=== PATIENT | female | born 1995 | race Caucasian/White ===

== ENCOUNTER 2025-03-30 07:13 | Emergency (ER) | payer MEDICAID ==
[~2025-03-30] VITALS: Ht 162.6 cm; Wt 52.0 kg
[~2025-03-30 07:13] MED LIST: FLUT16SP2 BOTHNARES; GUAI600T45 PO; ONDA8TAB6 PO; PSEU-259 PO
--- NOTE | 2025-03-30 07:49 | ELECTROCARDIOGRAPH REPORT ---
[facility] Test Date: 2025-03-30 Test Time: 07:47:16 Pat Name: LISHA DIAS Department: [facility]- Patient ID: [id number] Room: Gender: F [employer]ic: : 1995 Requested By: GRECIA MELENDREZ Order Number: [id number] Reading MD: Measurements Intervals [place] Rate: 67 P: 76 WI: 141 QRS: -50 QRSD: 100 T: 16 QT: 383 QTc: 405 Interpretive Statements Sinus rhythm Left axis deviation Baseline wander in lead(s) V3 Please click the below link to view image of tracing.
--- NOTE | 2025-03-30 07:52 | Physician Documentation ---
History of Present Illness ~ Chief Complaint: Syncope Stated Complaint: POSS SYNCOPE Time Seen by MD: 07:37 Primary Medical Doctor: NONE Source: patient, family Mode of Arrival: POV, Ambulatory Exam Limitations: no limitations HPI Chief Complaint: Passed out Caveat: None Independent Historians: History of Present Illness: Patient is a 29-year-old healthy woman who presents after having passed out this morning. Patient became ill yesterday with a cough, body aches, chills and sweats. Patient's cough is productive of green sputum. Patient also developed a fever yesterday. No abdominal pain. No nausea vomiting diarrhea. Patient thought she had the flu. When she woke up t his morning she got up out of bed and shortly thereafter became lightheaded, her ears felt warm and hot and her hearing was muffled. She became very dizzy lightheaded and lowered herself to the floor when she became unresponsive. Patient woke up a few sec later and was able to crawl to a chair. Patient tried to get up multiple times but would become very dizzy lightheaded and near syncopal. No chest pain. No shortness a breath. No abdominal pain. Patient's son had strep throat a few days ago. Patient does not have a sore throat. Patient's also became ill with the same symptoms that she had but is now better. Patient has started a new antipsychotic to help with her sleep. She does not remember the name of the medication. She just started at two days ago. Review of systems: All systems were reviewed and are negative except for what is indicated in the history of present illness. Past Medical History: None Past Surgical History: None Social History: Tobacco use, denies alcohol or drug use Medications: Reviewed as documented Nursing Notes Allergies: Reviewed as documented in Nursing Notes Medication Reconciliation Allergies: Coded Allergies: No Known Allergies (Unverified , 03/30/25) Scheduled Cephalexin*Monohydrate* (Keflex*), 1 CAP PO Q8H Fluticasone Propionate (Flonase), 2 SPRAYS BOTHNARES DAILY Guaifenesin (Mucinex), 1 TAB PO Q12H Pseudoephedrine Hcl (SUDAFED tablet), 1 TAB PO Q4H Scheduled PRN Ondansetron Hcl (Zofran), 8 MG PO Q8HPRN PRN for nausea/vomiting Past Medical History Past Medical History: No Pertinent History Past Surgical History: no surgical history Alcohol Use: Occasionally Drug Use: none Lives with: Family Lives In: Home Occupation: employed Review of Systems All Other Systems at this time: Reviewed and Negative ROS Patient denies any other acute symptoms other than above. All other systems are negative Physical Exam Vital Signs: RN Vital Signs have been reviewed: Yes, Temperature: 98.5, Source: Temporal, Heart Rate: 82, Respiratory Rate: 16, BP: 111/78, Pulse Oximetry: 99, Weight: 52.000 Oxygen Flow Rate: 0 Pulse Oximetry Reflects: adequate oxygenation Physical Exam General Appearance: Mild distress HEENT: Normal OP, moist oral mucosa, PERRL, EOMI Neck: supple, normal ROM, trachea midline Pulmonary: No respiratory distress, CTA, BS equal Cardiac: RRR, no murmur, rub or gallop, GI: nondistended, soft, nontender, normal bowel sounds, no guarding, no rebound Extremities: normal ROM, no swelling, non-tender Skin: intact, dry, warm, no rashes Neuro: AAOx3, speech is clear, no focal motor weakness Psych: normal affect, good eye contact, no apparent hallucination, normal speech Progress Results/Orders Results/Orders Orders - GRECIA MELENDREZ MD Chest,Single View (03/30/25 07:45) Saline Lock (03/30/25 07:45) Monitor (03/30/25 07:45) Hs Troponin I W Calculations (03/30/25 09:45) Hs Troponin I W Calculations (03/30/25 10:45) Culture Blood (03/30/25 07:45) Orthostatic Vs (03/30/25 07:45) Cult Urine + [place] [address] (03/30/25 09:30) Completed Orders - GRECIA MELENDREZ MD Electrocardiogram (03/30/25 ) Cbc/Diff (03/30/25 07:45) MG (03/30/25 07:45) PBNP (03/30/25 07:45) Chest,Single View (03/30/25 07:45) BMP (03/30/25 07:45) Hs Troponin I W Calculations (03/30/25 07:45) Procalcitonin (03/30/25 07:45) Lacticsepsis (03/30/25 07:45) Ringers Solution, Lacted (Lactated Ringe (03/30/25 07:45) Ua W/Microscopic, Cult If Ind (03/30/25 08:50) Ketorolac Trometh 15mg/Ml Vial (Toradol (03/30/25 09:50) Cephalexin Capsule (Keflex Capsule) (03/30/25 09:50) Medications Received in ER Medications (Trade) Dose Ordered Sig/Quinn Route PRN Reason Start Time Stop Time Status Last Admin Dose Admin (lactated ringers solution) 1,000 ml ONCE ONCE IV 03/30/25 07:45 03/30/25 07:47 DC 03/30/25 08:05 1,000 ML (Toradol injection) 15 mg ONCE ONCE IV 03/30/25 09:50 03/30/25 09:51 DC 03/30/25 10:07 15 MG (Keflex capsule) 500 mg ONCE ONCE PO 03/30/25 09:50 03/30/25 09:51 DC 03/30/25 10:07 500 MG Vital Signs 03/30/25 03/30/25 03/30/25 03/30/25 07:16 07:27 08:49 09:04 Temp 98.5 Pulse 82 66 64 70 84 Resp 16 16 11 B/P (MAP) 111/78 117/67 110/68 (82) 110/72 131/85 Pulse Ox 99 100 O2 Flow Rate 0 03/30/25 03/30/25 03/30/25 09:44 10:07 10:20 Pulse 72 69 Resp 19 17 17 B/P (MAP) 112/66 (81) 109/67 Pulse Ox 99 100 Laboratory Tests Test 03/30/25 08:00 03/30/25 08:50 03/30/25 09:05 White Blood Count 4.7 Red Blood Count 3.91 L Hemoglobin 12.4 Hematocrit 36.0 Mean Corpuscular Volume 92.1 Mean Corpuscular Hemoglobin 31.8 H Mean Corpuscular Hemoglobin Concent 34.6 Red Cell Distribution Width 13.5 Platelet Count 207 Mean Platelet Volume 8.4 Neutrophils (%) (Auto) 69.5 Lymphocytes (%) (Auto) 15.8 L Monocytes (%) (Auto) 13.9 H Eosinophils (%) (Auto) 0.3 Basophils (%) (Auto) 0.5 Neutrophils # (Auto) 3.2 Lymphocytes # (Auto) 0.7 L Monocytes # (Auto) 0.7 Eosinophils # (Auto) 0.0 Basophils # (Auto) 0.0 CBC Comment Sodium Level 137 Potassium Level 3.1 L Chloride Level 103 Carbon Dioxide Level 25.8 Anion Gap 8 Blood Urea Nitrogen 7 Creatinine 0.90 Estimated GFR/1.73 m2 74 BUN/Creatinine Ratio 7.8 L Glucose Level 92 Lactic Acid Level 1.5 Calcium Level 8.3 L Magnesium Level 2.0 Troponin I High Sensitivity 5 Pro-B-Type Natriuretic Peptide 66 Albumin 3.7 Procalcitonin < 0.05 Chemistry Comments Urine Specimen Description Non-specified Urine Color Yellow Urine Clarity Clear Urine pH 6.0 Urine Specific [place] <=1.005 Urine Protein Negative Urine Glucose (UA) Negative Urine Ketones Negative Urine Occult Blood Moderate H Urine Nitrite Positive H Urine Bilirubin Negative Urine Urobilinogen 0.2 Urine Leukocyte Esterase Negative Urine RBC None seen Urine WBC 5-10 H Urine Squamous Epithelial Cells Few Urine Bacteria 3+ Urine Fine Granular Casts 0-3 Urine Culture Indicated Indicated Volume Urine Centrifuged 10 ml Urine Comment Low volume SARS-CoV-2 Antigen (Rapid) Positive *A Microbiology Date/Time Source Procedure Growth Status 03/30/25 09:30 Urine Nonspecified Urine Culture - Preliminary Culture received. Resulted 03/30/25 08:02 Blood Hand Right Blood Culture - Preliminary NEGATIVE (LESS THAN 24 HOURS) Resulted Medical Decision Making Findings Differential diagnosis includes but is not limited to: COVID, influenza, pneumonia, strep, other viral syndrome, dehydration, cardiac dysrhythmia EKG independent interpretation: Performed at 7:47 a.m.. Normal sinus rhythm, heart rate 67, leftward axis, normal ST segments Chest x-ray, single view, indication: Cough Independent interpretation: Lungs are clear, normal mediastinum, normal cardiac silhouette. No acute cardiopulmonary process Laboratory data independent interpretation: CBC: Unremarkable CMP: Unremarkable Serology: COVID positive Urinalysis: Consistent with urinary tract infection Emergency department course/medical decision-making: Patient's history and physical and presentation is consistent with an acute viral syndrome. Patient is also found to have a urinary tract infection. Patient will be started on Keflex. Patient has positive test for COVID. Test results and treatment plan all reviewed with the patient. Patient is stable for discharge. Patient was given 1 L of LR. Patient is also found to have a urinary tract infection. Patient will be started on Keflex. Patient is given Toradol for her body aches 15 mg IV. Test results and treatment plan reviewed with the patient. Patient is stable for discharge. Departure Time of Disposition: 09:44 Disposition: 01 HOME / SELF CARE / HOMELESS Impression: Primary Impression: COVID Additional Impressions: Syncope Qualified Codes: R55 - Syncope and collapse UTI (urinary tract infection) Qualified Codes: N39.0 - Urinary tract infection, site not specified Condition: Stable Discharge Instructions: Syncope, Adult, [id number], Urinary Tract Infection, Adult, [id number], Viral Illness, Adult Additional Instructions: STAY HYDRATED. TAKE ADVIL AND TYLENOL FOR YOUR SYMPTOMS. RECOMMEND DAILY VITAMIN D AND ZINC. Prescriptions Cephalexin*Monohydrate* (Keflex*) 500 Mg Capsule 1 CAP PO Q8H for 5 Days, #15 CAP Prov: GRECIA MELENDREZ MD 03/30/25 Education Educated: Patient, Family Educated regarding: diagnosis, treatment, need for follow up Signature Scribe Signature: NO SCRIBE Attestation: NO SCRIBE GRECIA MELENDREZ MD Mar 30, 2025 07:51
[2025-03-30] MEDS: ringers solution, lactated 1000ml IV soln IV ONE (08:05)
--- NOTE | 2025-03-30 08:10 | RADIOLOGY REPORT ---
CHEST RADIOGRAPH Indication: CP Technique: Single frontal view of the chest was obtained Comparison: None FINDINGS: Lines and Tubes: None Lungs: No focal consolidation. Pleura: No effusion. No pneumothorax. Cardiomediastinal contours: Unremarkable Bones: No acute osseous abnormality. IMPRESSION: 1. No acute cardiopulmonary disease.
[2025-03-30 08:28] LABS: MEAN PLATELET VOLUME 8.4 FL (7.4-10.4); RED CELL DISTRIBUTION WIDTH 13.5 % (11.5-14.5)
[2025-03-30 09:00] LABS: CREATININE 0.90 MG/DL (0.40-0.90); PRO BRAIN NATRIURETIC PEPTIDE 66 PG/ML (0-125); TOTAL CARBON DIOXIDE 25.8 MMOL/L (24-32); eCRCL 75 ML/MIN; eGFR 74 ML/MIN
[2025-03-30 09:15] LABS: LEUKOCYTE ESTERASE ,URINE NEGATIVE (Neg); NITRITES, URINE POSITIVE (Neg); OCCULT BLOOD,URINE MODERATE (Neg)
[2025-03-30 09:23] LABS: UA COLLECTION TYPE NON-SPECIFIED
[2025-03-30 09:27] LABS: FINE GRANULAR CAST 0-3 /LPF (NEGATIVE); SQUAMOUS EPITHELIAL CELL,UR FEW /LPF (FEW)
[2025-03-30] MEDS: ketorolac trometh 15mg/ml vial 15 MG/ML ML IV ONE (10:07)
[2025-03-30] MEDS ORDERED: CEPH-585 PO (10:15)
[2025-03-30 10:20] VITALS: BP 109/67; PULSE 69; RESP 17; O2SAT 100
== END 2025-03-30 10:24 | disposition home or self-care (01) ==
LOC: ER 07:14
DX: U07.1 COVID-19 (principal); N39.0 Urinary tract infection, site not specified; Z79.899 Other long term (current) drug therapy; Z72.89 Other problems related to lifestyle
CPT/HCPCS: 36415; 71045; 80048; 81001; 83605; 83735; 83880; 84145; 84484; 85025; 87040; 87088; 87186; 87811; 93005; 96361; 96374; 99285; J1885; J7120; 87077